=== PATIENT | male | born 1955 | race Two or more races ===

== ENCOUNTER 2021-09-06 09:09 | Day surgery (SDC) | payer BC ==
[~2021-09-06] VITALS: Ht 172.7 cm; Wt 74.3 kg
[~2021-09-06 09:09] MED LIST: ATOR10; Aspir 8181 MG; B COMPLEX FORM0.4 MG; BIMA.03OPS; CALCIUM CIT 311 EAC7; DIAZ5 PO; DOCU100 PO; ERGO400; ERGO400 PO; IBUP600 PO; Lovastatin20 MG; MECL25 PO; MULTIVITAMIN PO; NIAC500 PO; SIMV10 PO
== END 2021-09-06 11:25 | disposition home or self-care (01) ==
LOC: ORSCSDS 09:09
PROVIDERS: Internal Medicine Gastroenterology
PROC: 0DBK8ZX Excision of Ascending Colon, Via Natural or Artificial Opening Endoscopic, Diagnostic (ICD-10-PCS; principal; 2021-09-06 10:30)
PROC: 0DBL8ZX Excision of Transverse Colon, Via Natural or Artificial Opening Endoscopic, Diagnostic (ICD-10-PCS; principal; 2021-09-06 10:30)
DX: Z12.11 Encounter for screening for malignant neoplasm of colon (principal); D12.2 Benign neoplasm of ascending colon; D12.3 Benign neoplasm of transverse colon; K64.8 Other hemorrhoids; Z79.82 Long term (current) use of aspirin; Z79.899 Other long term (current) drug therapy
CPT/HCPCS: 88305; J2704; J7120

== ENCOUNTER 2021-10-03 07:14 | Day surgery (SDC) | payer BC ==
[~2021-10-03] VITALS: Ht 172.7 cm; Wt 75.5 kg
[2021-10-03] MEDS ORDERED: IBUP200 (07:39)
--- NOTE | 2021-10-03 08:59 | NUR ---
10/03/21 0859 Josué Miles PT RESTING ON RECLINER, TOLERATING SNACKS. PT AWAKE, ALERT, DENIES ANY PAIN AT THIS TIME. VS WNL. WILL CONTINUE TO MONITOR.
== END 2021-10-03 09:15 | disposition home or self-care (01) ==
LOC: ORSCSDS 07:14
PROVIDERS: Orthopaedic Surgery
PROC: 01N50ZZ Release Median Nerve, Open Approach (ICD-10-PCS; principal; 2021-10-03 08:30)
DX: G56.01 Carpal tunnel syndrome, right upper limb (principal)
CPT/HCPCS: J2250; J3010; J7120

== ENCOUNTER 2025-01-28 08:58 | Day surgery (SDC) | payer BC ==
[~2025-01-28] VITALS: Ht 177.8 cm; Wt 80.6 kg
[~2025-01-28 08:58] MED LIST changes: +Balanced Salt Epinephrine Irrigation Solution 500 mL IR SCH; +IBUP200; +Lidocaine HCl/Pf 1% 5 ML VIAL XX SCH; +Moxifloxacin HCL 0.5 MG/0.1 ML 0.4MLSYR RIGHTEYE SCH; +PHENYLEPHRINE\\TROPICAMIDE\\TETRACAINE OPHTHALMIC DILATING SOLN RIGHTEYE PRN; +Povidone-Iodine 450 DROP/30 ML Solution ONE; +Povidone-Iodine 450 DROP/30 ML Solution RIGHTEYE SCH; +Tetracaine HCl/Pf 0.5% Opth Soln 4 ml ONE; +Triamcinolone Inj Susp 40 MG / ML 1ML Vial INJ SCH; +Triamcinolone Inj Susp 40 MG / ML 1ML Vial ONE
[2025-01-28] MEDS ORDERED: LATA.005SO (09:28)
[2025-01-28] MEDS ORDERED: ASPI325 PO (09:29)
[2025-01-28] MEDS ORDERED: NS 500 ML IV ONE (09:39)
[2025-01-28] MEDS ORDERED: FentaNYL Citrate 50 MCG/ML 2 ML Injection ONE (09:58)
[2025-01-28] MEDS ORDERED: Midazolam HCl 1MG / ML 2ML Vial ONE (09:58)
--- NOTE | 2025-01-28 10:48 | NUR ---
01/28/[address] VISITING W/ PT & PT'S AT BEDSIDE AT THIS TIME GOING OVER PROCEDURE & POST-OPERATIVE VISION, BOTH VERBALIZED UNDERSTANDING. PT TRANSFERRED TO RECLINER W/ MIN ASSIST. DENIES PAIN/NAUSEA. TOLERATING CRANBERRY JUICE W/O COMPLAINT. NO VISIBLE SIGNS OF DISTRESS NOTED.
[2025-01-28 11:01] VITALS: BP 135/75
== END 2025-01-28 10:58 | disposition home or self-care (01) ==
LOC: ORSCSDS 08:58
PROVIDERS: Ophthalmology
PROC: 08RJ3JZ Replacement of Right Lens with Synthetic Substitute, Percutaneous Approach (ICD-10-PCS; principal; 2025-01-28 10:30)
PROC: 08923ZZ Drainage of Right Anterior Chamber, Percutaneous Approach (ICD-10-PCS; principal; 2025-01-28 10:30)
DX: H25.813 Combined forms of age-related cataract, bilateral (principal); H40.1131 Primary open-angle glaucoma, bilateral, mild stage; E78.5 Hyperlipidemia, unspecified; Z79.82 Long term (current) use of aspirin; Z79.899 Other long term (current) drug therapy
CPT/HCPCS: J2250; J3010; J3301; V2632

== ENCOUNTER 2025-02-04 11:01 | Day surgery (SDC) | payer BC ==
[~2025-02-04] VITALS: Ht 172.7 cm; Wt 79.9 kg
[~2025-02-04 11:01] MED LIST changes: +ASPI325 PO; +LATA.005SO; +Moxifloxacin HCL 0.5 MG/0.1 ML 0.4MLSYR LEFTEYE SCH; -Moxifloxacin HCL 0.5 MG/0.1 ML 0.4MLSYR RIGHTEYE SCH; +PHENYLEPHRINE\\TROPICAMIDE\\TETRACAINE OPHTHALMIC DILATING SOLN LEFTEYE PRN; -PHENYLEPHRINE\\TROPICAMIDE\\TETRACAINE OPHTHALMIC DILATING SOLN RIGHTEYE PRN; +Povidone-Iodine 450 DROP/30 ML Solution LEFTEYE SCH; -Povidone-Iodine 450 DROP/30 ML Solution RIGHTEYE SCH
[2025-02-04] MEDS ORDERED: Midazolam HCl 1MG / ML 2ML Vial ONE (11:50)
[2025-02-04] MEDS ORDERED: FentaNYL Citrate 50 MCG/ML 2 ML Injection ONE (11:50)
--- NOTE | 2025-02-04 11:52 | NUR ---
02/04/25 1152 Calin Caicedo TETRACAINE ADMINISTERED AT 1138, PLEDGET PLACED AT 1139.
[2025-02-04] MEDS ORDERED: Triamcinolone Inj Susp 40 MG / ML 1ML Vial ONE (12:40)
[2025-02-04 12:49] VITALS: BP 119/77
--- NOTE | 2025-02-04 12:58 | NUR ---
02/04/25 1258 Yara Duran D/Reyna INSTRUCTIONS GIVEN TO PT, UNDERSTANDING VERBALIZED. PT HAS ALL BELONGINGS W/ HIM, INCLUDING EYE KIT. PT DENIES PAIN/NAUSEA, VSS, ON RA. PT DRANK GLASS OF APPLE JUICE W/O COMPLAINT. PT WHEELED TO PRIVATE VEHICLE, STEADY GAIT NOTED UPON TRANSFER FROM TO VEHICLE. NO VISIBLE SIGNS OF DISTRESS NOTED.
== END 2025-02-04 12:57 | disposition home or self-care (01) ==
LOC: ORSCSDS 11:01
PROVIDERS: Ophthalmology
PROC: 08RK3JZ Replacement of Left Lens with Synthetic Substitute, Percutaneous Approach (ICD-10-PCS; principal; 2025-02-04 12:30)
DX: H25.812 Combined forms of age-related cataract, left eye (principal); H21.81 Floppy iris syndrome; Z96.1 Presence of intraocular lens; Z87.891 Personal history of nicotine dependence; E78.5 Hyperlipidemia, unspecified; H40.9 Unspecified glaucoma; Z79.82 Long term (current) use of aspirin; Z79.899 Other long term (current) drug therapy
CPT/HCPCS: J2250; J3010; J3301; V2632